=== PATIENT | male | born 1980 | race American Indian/Alaskan Native ===

== ENCOUNTER 2017-06-24 20:48 | Emergency (ER) | payer OTHER ==
[2017-06-24 20:53] VITALS: BP 124/73
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
[2017-06-24] MEDS ORDERED: MOTRIN PO ONE (22:35)
== END 2017-06-24 23:04 | disposition home or self-care (01) ==
LOC: ED 20:48
DX: S16.1XXA Strain of muscle, fascia and tendon at neck level, initial encounter (principal); V49.49XA Driver injured in collision with other motor vehicles in traffic accident, initial encounter; Y93.89 Activity, other specified; Y92.89 Other specified places as the place of occurrence of the external cause; Y99.8 Other external cause status
CPT/HCPCS: 99282

== ENCOUNTER 2019-05-31 18:33 | Emergency (ER) | payer OTHER ==
[2019-05-31 19:32] VITALS: BP 113/72
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
[2019-05-31] MEDS ORDERED: traMADol 50 MG TAB PO ONE (21:35)
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
== END 2019-05-31 22:58 | disposition home or self-care (01) ==
LOC: ED 18:33
DX: S16.1XXA Strain of muscle, fascia and tendon at neck level, initial encounter (principal); Z79.899 Other long term (current) drug therapy; Z79.1 Long term (current) use of non-steroidal anti-inflammatories (NSAID); V49.49XA Driver injured in collision with other motor vehicles in traffic accident, initial encounter; Y93.89 Activity, other specified; Y92.413 State road as the place of occurrence of the external cause; Y99.8 Other external cause status
CPT/HCPCS: 72040